=== PATIENT | male | born 1970 | race Caucasian/White ===

== ENCOUNTER 2023-05-02 08:37 | Outpatient (CLI) | payer OTHER | END 2023-05-02 23:59 | disposition home or self-care (01) | LOC: MRI 08:37 | PROVIDERS: ATTEND Family Medicine | DX: S93.601A Unspecified sprain of right foot, initial encounter (principal); M25.371 Other instability, right ankle; M76.71 Peroneal tendinitis, right leg; M65.871 Other synovitis and tenosynovitis, right ankle and foot; X58.XXXA Exposure to other specified factors, initial encounter; Y93.89 Activity, other specified; Y92.89 Other specified places as the place of occurrence of the external cause; Y99.8 Other external cause status | CPT/HCPCS: 73718; 73721 ==